=== PATIENT | male | born 1990 | race Caucasian/White ===

== ENCOUNTER 2023-08-17 08:59 | Emergency (ER) | payer BC, MEDICAID ==
[~2023-08-17] VITALS: Ht 177.8 cm; Wt 81.6 kg
[2023-08-17 09:09] VITALS: BP_SYST 154; PULSE 98; RESP 18; TEMP 97.8; O2SAT 98
== END 2023-08-17 12:45 | disposition left against medical advice (07) ==
LOC: SED 08:59
DX: L02.512 Cutaneous abscess of left hand (principal); Z53.21 Procedure and treatment not carried out due to patient leaving prior to being seen by health care provider
CPT/HCPCS: 73140-TC; 99281

== ENCOUNTER 2024-04-23 16:30 | Emergency (ER) | payer MEDICAID ==
[~2024-04-23] VITALS: Ht 172.7 cm; Wt 81.6 kg
[2024-04-23 16:30] VITALS: BP_SYST 127; PULSE 87; RESP 20; TEMP 98.7; O2SAT 99
[2024-04-23 18:03] LABS: HEMOGLOBIN 13.8 g/dL (14.0-18.0); NEUTROPHILS # (AUTO) 4.5 K/uL (1.8-7.7); WHITE BLOOD COUNT (AUTO) 6.9 K/uL (4.8-10.8)
[2024-04-23 18:13] LABS: ALANINE AMINOTRANSFERASE 35 U/L (12-78); ALBUMIN 3.3 g/dL (3.4-4.8); ANION GAP 6 (5-15); ASPARTATE AMINOTRANSFERASE 40 U/L (10-37); BILIRUBIN,DIRECT 0.3 mg/dL (0.0-0.3); CARBON DIOXIDE 31 mmol/L (23-29); CHLORIDE 105 mmol/L (98-107); CREATININE 0.91 mg/dL (0.55-1.30); GFR AFRICAN AMERICAN 125 mL/min (>90); GFR NON AFRICAN-AMERICAN 103 mL/min (>90); GLUCOSE 99 mg/dL (74-106); POTASSIUM 3.7 mmol/L (3.5-5.1); SODIUM SERUM 142 mmol/L (136-145); TOTAL BILIRUBIN 1.6 mg/dL (0.0-1.0); TOTAL PROTEIN, SERUM 6.1 g/dL (6.4-8.3); UREA NITROGEN, BLOOD 12 mg/dL (8-21)
[2024-04-23 18:14] LABS: ACETAMINOPHEN < 1 ug/mL (1-30); ALCOHOL, BLOOD < 3 mg/dL (<10); BASOPHILS % (AUTO) 0.5 % (0.0-2.0); EOSINOPHILS # (AUTO) 0.2 K/uL (0.0-0.4); EOSINOPHILS % (AUTO) 2.4 % (0.0-4.0); HEMATOCRIT 40.7 % (36-54); LYMPHOCYTES # (AUTO) 1.5 K/uL (1.0-5.5); LYMPHOCYTES % (AUTO) 21.2 % (20.5-51.5); MEAN CORPUSCULAR HEMOGLOBIN 29 pg (27-31); MEAN CORPUSCULAR HGB CONC 34 % (32-36); MEAN CORPUSCULAR VOLUME 86 fL (79.0-98.0); MONOCYTES # (AUTO) 0.7 K/uL (0.0-1.0); MONOCYTES % (AUTO) 10.4 % (1.7-9.3); NEUTROPHILS % (AUTO) 65.5 % (40.0-70.0); PLATELET COUNT (AUTO) 212 K/uL (130-430); RED BLOOD CELL COUNT(AUTO) 4.72 MIL/uL (4.2-6.2); RED CELL DISTRIBUTION WIDTH 14.2 % (9.0-15.0); SALICYLATE < 1 mg/dL (3-30)
[2024-04-23 19:32] LABS: BARBITURATE, URINE NEGATIVE (NEG <=200); CANNABINOID, URINE NEGATIVE (NEG <=50); COCAINE, URINE NEGATIVE (NEG <=150); OPIATE, URINE NEGATIVE (NEG <=100); PHENCYCLIDINE SCREEN,URINE NEGATIVE (NEG <=25); UR TRICYCLIC ANTIDEPRESSANTS NEGATIVE (NEG <=300); URINE METHADONE NEGATIVE (NEG <=200); URINE OXYCODONE SCREEN NEGATIVE (NEG <=100)
[2024-04-23 19:33] LABS: BENZODIAZEPINE, URINE POSITIVE (NEG <=150); METHAMPHETAMINES SCREEN,URINE POSITIVE (NEG <=500); URINE AMPHETAMINE POSITIVE (NEG <=500)
[2024-04-23] MEDS ORDERED: NALOXONE HCL 0.4 MG/ML AMP (NARCAN) ONE (20:58)
[2024-04-23] MEDS ORDERED: NALOXONE HCL 2 MG/2 ML SYR ONE (21:24)
[2024-04-23] MEDS: NALOXONE HCL 2 MG/2 ML SYR (NARCAN) IM ONE (21:31)
[2024-04-24 05:00] VITALS: O2SAT 97
[2024-04-24 05:14] VITALS: BP_SYST 123; PULSE 58; RESP 16; TEMP 97.8
== END 2024-04-24 05:07 ==
LOC: SED 16:30
DX: R45.851 Suicidal ideations (principal); R41.82 Altered mental status, unspecified; F15.10 Other stimulant abuse, uncomplicated; F19.10 Other psychoactive substance abuse, uncomplicated; F32.2 Major depressive disorder, single episode, severe without psychotic features; Z60.2 Problems related to living alone
CPT/HCPCS: 99291; 80307; 80076; 80048; 85025; 36415; 93005; 96372; G0482; J2310 ×2; G0480; G0481